=== PATIENT | female | born 1960 | race Caucasian/White ===

== ENCOUNTER 2017-09-23 20:16 | Emergency (ER) | payer OTHER ==
[~2017-09-23] VITALS: Ht 160 cm; Wt 75.9 kg
[2017-09-23] MEDS ORDERED: IBUP-2071 PO (20:23)
[2017-09-23] MEDS ORDERED: SUMA100T PO (20:23)
[2017-09-23] MEDS ORDERED: ONDANSETRON HCL 4 MG/2 ML VIAL IVP ONE (21:00)
[2017-09-23] MEDS ORDERED: SODIUM CHLORIDE 0.9% 1,000 ML IV ONE (21:00)
[2017-09-23] MEDS ORDERED: KETOROLAC TROMETHAMINE 30 MG/ML VIAL IVP ONE (21:00)
[2017-09-23] MEDS ORDERED: LORazepam 2 MG/ML VIAL IVP ONE (21:00)
[2017-09-23 21:58] VITALS: BP 135/78
== END 2017-09-23 22:15 | disposition home or self-care (01) ==
LOC: EMS 20:19
DX: G43.909 Migraine, unspecified, not intractable, without status migrainosus (principal); F41.9 Anxiety disorder, unspecified; R42 Dizziness and giddiness
CPT/HCPCS: 96361; 96374; 96375; 99285; J1885; J2060; J2405; J7030